=== PATIENT | female | born 1945 | race Asian ===

== ENCOUNTER 2017-10-13 09:25 | Inpatient (IN) | payer OTHER ==
[2017-10-13 11:22] LABS: WHITE BLOOD COUNT 6.6 10^3/ul (4.8-10.8)
[2017-10-13 11:22] LABS: ADD MAN DIFF? NO; BASOPHILS % 0.3 % (0.0-2.0); EOSINOPHILS # 0.1 10^3/ul (0.0-0.5); EOSINOPHILS % 2.1 % (0.0-7.0); HEMATOCRIT 39.3 % (37.0-47.0); HEMOGLOBIN 12.1 g/dl (12.0-16.0); LYMPHOCYTES # 2.1 10^3/ul (0.8-2.9); LYMPHOCYTES % 31.4 % (15.0-51.0); MEAN CORPUSCULAR HEMOGLOBIN 26.1 pg (29.0-33.0); MEAN CORPUSCULAR HGB CONC 30.8 g/dl (32.0-37.0); MEAN CORPUSCULAR VOLUME 84.7 fl (82.0-101.0); MEAN PLATELET VOLUME 12.3 fl (7.4-10.4); MONOCYTE # 0.5 10^3/ul (0.3-0.9); NEUTROPHIL # 3.9 10^3/ul (1.6-7.5); PLATELET COUNT 150 10^3/UL (140-415); RED BLOOD COUNT 4.64 10^6/ul (4.20-5.40); RED CELL DISTRIBUTION WIDTH 13.4 % (11.5-14.5)
[2017-10-13 11:45] LABS: ANION GAP 16 (8-16); CARBON DIOXIDE 28 mmol/L (21-31); CHLORIDE 105 mmol/L (97-110); GLUCOSE 129 mg/dl (70-220)
[2017-10-13 11:46] LABS: INR 0.95; PROTIME 12.8 Sec (11.9-14.9)
[2017-10-13 11:54] LABS: BLOOD UREA NITROGEN 17 mg/dl (7-20); CALCIUM 8.9 mg/dl (8.4-10.2); CREATININE 0.67 mg/dl (0.44-1.00); POTASSIUM 4.6 mmol/L (3.5-5.1); SODIUM 144 mmol/L (135-144)
[2017-10-13] MEDS ORDERED: HEPARIN 1000 UNITS/ML 10 ML INJ (12:19)
[2017-10-13] MEDS ORDERED: IODIXANOL LOCM 100 ML BTL (12:19)
[2017-10-13] MEDS ORDERED: MIDAZOLAM 1 MG/ML 2 ML INJ (12:19)
[2017-10-13] MEDS ORDERED: FENTAnyl 50 MCG/ML VIAL (12:20)
[2017-10-13] MEDS ORDERED: VERAPAMIL 5 MG INJ (12:20)
[2017-10-13] MEDS ORDERED: NITROGLYCERIN (IC) 100 MCG/ML INJ (12:20)
[2017-10-13] MEDS ORDERED: NACL 0.9% 3 ML SYG IV (13:30)
[2017-10-13] MEDS ORDERED: BISACODYL 10 MG SUPP PR (13:30)
[2017-10-13] MEDS ORDERED: morphine 2 MG INJ IV (13:30)
[2017-10-13] MEDS ORDERED: DOCUSATE SODIUM 100 MG CAP PO (13:30)
[2017-10-13] MEDS ORDERED: LORAZEPAM 2 MG INJ IV (13:30)
[2017-10-13] MEDS ORDERED: ONDANSETRON 4 MG INJ IV (13:30)
[2017-10-13] MEDS ORDERED: AL HYDROX/MG HYDROX/SIMETH 30 ML CUP PO (13:30)
[2017-10-13] MEDS ORDERED: NITROGLYCERIN (SL) 0.4 MG TAB SL (13:30)
[2017-10-13] MEDS ORDERED: MAGNESIUM HYDROXIDE 30ML CUP PO (13:30)
[2017-10-13] MEDS ORDERED: GLUCOSE GEL 15 GRAM TUBE BUCCAL (14:00)
[2017-10-13] MEDS ORDERED: GLUCOSE GEL 15 GRAM TUBE PO ×2 (14:00)
[2017-10-13] MEDS ORDERED: DEXTROSE 50% 50 ML SYRINGE IV ×2 (14:00)
[2017-10-13] MEDS ORDERED: GLUCAGON 1 MG INJ IM (14:00)
[2017-10-13] MEDS: ACETAMINOPHEN 325 MG TAB PO (16:17)
[2017-10-13] MEDS: ASPIRIN 81 MG TAB PO (16:18)
[2017-10-13] MEDS: INSULIN ASPART [NOVOLOG] 3 ML PEN SC ×2 (18:23→20:46)
[2017-10-13] MEDS ORDERED: CEFAZOLIN 2 GM/50 ML (PMX) 50 ML IVPB (20:00)
[2017-10-13] MEDS: ATORVASTATIN 80 MG TAB PO (20:42)
[2017-10-14] MEDS ORDERED: ALBUMIN HUMAN 25% 100 ML INJ (07:00)
[2017-10-14] MEDS ORDERED: ALBUMIN HUMAN 5% 250 ML INJ (07:00)
[2017-10-14] MEDS ORDERED: NITROGLYCERIN 50 MG/D5W 250 ML BTL (07:00)
[2017-10-14 07:27] LABS: ADD MAN DIFF? NO
[2017-10-14 07:30] LABS: WHITE BLOOD COUNT 7.6 10^3/ul (4.8-10.8)
[2017-10-14 07:30] LABS: BASOPHILS % 0.4 % (0.0-2.0); EOSINOPHILS # 0.1 10^3/ul (0.0-0.5); EOSINOPHILS % 1.7 % (0.0-7.0); HEMATOCRIT 39.6 % (37.0-47.0); HEMOGLOBIN 12.1 g/dl (12.0-16.0); LYMPHOCYTES # 1.9 10^3/ul (0.8-2.9); MEAN CORPUSCULAR HGB CONC 30.6 g/dl (32.0-37.0); MEAN PLATELET VOLUME 12.2 fl (7.4-10.4); MONOCYTE # 0.5 10^3/ul (0.3-0.9); MONOCYTES % 6.5 % (0.0-11.0); NEUTROPHIL # 5.1 10^3/ul (1.6-7.5); NEUTROPHILS % 66.3 % (39.0-77.0); PLATELET COUNT 146 10^3/UL (140-415); RED BLOOD COUNT 4.66 10^6/ul (4.20-5.40); RED CELL DISTRIBUTION WIDTH 13.2 % (11.5-14.5)
[2017-10-14 07:39] LABS: HEMOGLOBIN A1C 6.8 % (0-5.9)
[2017-10-14 07:57] LABS: ALANINE AMINOTRANSFERASE 37 IU/L (13-69); ALBUMIN 3.6 g/dl (3.3-4.9); ALBUMIN/GLOBULIN RATIO 1.24; ALKALINE PHOSPHATASE 95 IU/L (42-121); ANION GAP 11 (8-16); ASPARTATE AMINO TRANSFERASE 24 IU/L (15-46); BILIRUBIN,INDIRECT 1.3 mg/dl (0-1.1); BILIRUBIN,TOTAL 1.3 mg/dl (0.2-1.3); BLOOD UREA NITROGEN 14 mg/dl (7-20); CARBON DIOXIDE 32 mmol/L (21-31); CHLORIDE 107 mmol/L (97-110); CHOL/HDL RATIO 2.7 RATIO; CHOLESTEROL 75 mg/dl (100-200); CREATININE 0.63 mg/dl (0.44-1.00); GLUCOSE 129 mg/dl (70-220); HDL CHOLESTEROL 27 mg/dl (33-92); LDL CHOLESTEROL,CALCULATED 24 mg/dl; MAGNESIUM 1.8 mg/dl (1.7-2.5); POTASSIUM 4.4 mmol/L (3.5-5.1); SODIUM 146 mmol/L (135-144); TOTAL PROTEIN 6.5 g/dl (6.1-8.1); TRIGLYCERIDES 120 mg/dl (0-149)
[2017-10-14] MEDS: INSULIN ASPART [NOVOLOG] 3 ML PEN SC ×2 (08:00→12:00)
[2017-10-14 08:01] LABS: CALCIUM 8.9 mg/dl (8.4-10.2)
[2017-10-14] MEDS: BENAZEPRIL 5 MG TAB PO (08:14)
[2017-10-14] MEDS: PANTOPRAZOLE (EC) 40 MG TAB PO (08:14)
[2017-10-14] MEDS: ASPIRIN 81 MG TAB PO (08:16)
[2017-10-14] MEDS ORDERED: SODIUM CL BACTERIOSTATIC 30 ML INJ (09:19)
[2017-10-14] MEDS: CEFAZOLIN 2 GM/50 ML (PMX) 50 ML IVPB (11:54)
[2017-10-14] MEDS: HEPARIN (10000 UNITS/ML) 10,000 UNIT, MILRINONE LACTATE 10 MG in SOD CHLORIDE 0.9% 1,00... SC (13:00)
[2017-10-14] MEDS: EPINEPHrine 4 MG in DEXTROSE 5% 246 ML IV (13:00)
[2017-10-14] MEDS: MILRINONE LACTATE 2 MG in SOD CHLORIDE 0.9% 50 ML IV (13:00)
[2017-10-14] MEDS: ASPIRIN 600 MG SUPP PR (13:00)
[2017-10-14] MEDS: PHENYLephrine 20MG IN 250 ML 250 ML IV (13:00)
[2017-10-14] MEDS: NORepinephrine 8MG/250 ML (PMX 250 ML IV (13:00)
[2017-10-14] MEDS ORDERED: ROCURONIUM 50 MG INJ (13:05)
[2017-10-14] MEDS ORDERED: SUCCINYLCHOLINE CHLORIDE 100 MG/5 ML SYG IV (13:05)
[2017-10-14] MEDS ORDERED: LIDOCAINE 2% (SDV) 5 ML INJ (13:05)
[2017-10-14] MEDS ORDERED: ETOMIDATE 20 MG INJ (13:05)
[2017-10-14] MEDS ORDERED: MIDAZOLAM 5 ML ×2 (13:05)
[2017-10-14] MEDS ORDERED: PROPOFOL 100 ML (13:06)
[2017-10-14] MEDS ORDERED: AMINOCAPROIC ACID 5 GM INJ ×2 (13:06→15:58)
[2017-10-14] MEDS ORDERED: HEPARIN 1000 UNITS/ML 10 ML INJ ×2 (13:10→15:58)
[2017-10-14] MEDS ORDERED: VANCOMYCIN 1 GM INJ (14:24)
[2017-10-14] MEDS: VANCOMYCIN 1 GM INJ (15:01)
[2017-10-14] MEDS: HEPARIN 1000 UNITS/ML 10 ML INJ (15:05)
[2017-10-14] MEDS: PAPAVERINE 60 MG INJ (15:06)
[2017-10-14] MEDS ORDERED: PROTAMINE 250 MG INJ (15:07)
[2017-10-14] MEDS ORDERED: PHENYLephrine 10 MG INJ (15:57)
[2017-10-14] MEDS ORDERED: LIDOCAINE 100 MG SYRINGE (15:57)
[2017-10-14] MEDS ORDERED: MAGNESIUM SULFATE (MG) 50% 10 ML INJ (15:58)
[2017-10-14] MEDS ORDERED: MANNITOL 20% 250 ML IV (15:58)
[2017-10-14] MEDS ORDERED: ALBUMIN HUMAN 25% 200 ML (15:58)
[2017-10-14] MEDS ORDERED: CA CHLORIDE 10% 10 ML SYRINGE (15:58)
[2017-10-14] MEDS ORDERED: NA BICARBONATE 8.4% 50 ML SYG (15:58)
[2017-10-14] MEDS ORDERED: POTASSIUM CHLORIDE 40 MEQ INJ (15:58)
[2017-10-14] MEDS ORDERED: FUROSEMIDE 20 MG INJ (15:58)
[2017-10-14] MEDS ORDERED: DOPamine-D5W 1.6 MG/ML 250 ML IV (17:30)
[2017-10-14] MEDS ORDERED: HYDROmorphONE 0.5 MG/0.5 ML SYG IV (17:30)
[2017-10-14] MEDS ORDERED: OXYCODONE/ACETAMINOPHEN (5/325) TAB PO (17:30)
[2017-10-14] MEDS ORDERED: MAGNESIUM SULFATE 1 GM/D5W 100 ML IVPB (17:30)
[2017-10-14] MEDS ORDERED: ONDANSETRON 4 MG INJ IV (17:30)
[2017-10-14] MEDS ORDERED: DEXTROSE 50% 50 ML SYRINGE IV ×2 (17:30)
[2017-10-14 17:56] LABS: ADD MAN DIFF? NO
[2017-10-14 17:58] LABS: ABNORMAL IP MESSAGE 1; BASOPHILS % 0.1 % (0.0-2.0); EOSINOPHILS # 0.1 10^3/ul (0.0-0.5); EOSINOPHILS % 1.2 % (0.0-7.0); HEMATOCRIT 24.9 % (37.0-47.0); HEMOGLOBIN 7.9 g/dl (12.0-16.0); LYMPHOCYTES % 13.6 % (15.0-51.0); MEAN CORPUSCULAR HEMOGLOBIN 26.7 pg (29.0-33.0); MEAN CORPUSCULAR HGB CONC 31.7 g/dl (32.0-37.0); MEAN CORPUSCULAR VOLUME 84.1 fl (82.0-101.0); MEAN PLATELET VOLUME 11.3 fl (7.4-10.4); MONOCYTE # 0.1 10^3/ul (0.3-0.9); MONOCYTES % 1.6 % (0.0-11.0); NEUTROPHIL # 6.3 10^3/ul (1.6-7.5); NEUTROPHILS % 83.2 % (39.0-77.0); PLATELET COUNT 69 10^3/UL (140-415); RED BLOOD COUNT 2.96 10^6/ul (4.20-5.40); RED CELL DISTRIBUTION WIDTH 13.2 % (11.5-14.5)
[2017-10-14 17:58] LABS: WHITE BLOOD COUNT 7.6 10^3/ul (4.8-10.8)
[2017-10-14 17:59] LABS: POSITIVE DIFF @See below
[2017-10-14] MEDS: ACCU-CHEK XX ×6 (18:00→23:07)
[2017-10-14 18:18] LABS: INR 1.61; PROTIME 19.5 Sec (11.9-14.9); PT RATIO 1.5
[2017-10-14 18:19] LABS: PARTIAL THROMBOPLASTIN TIME 40.5 Sec (25.0-35.0)
[2017-10-14 18:20] LABS: AADO2 Arterial 274.4 mmHg (7.0-24.0); Arterial Base Excess -1.6 mmol/L (-3.0-3); Arterial Blood Gas Oxygen Sat 98.6 mmHG (95.0-100.0); Arterial COHb 0.3 % (0.0-3.0); Arterial Fraction of Oxyhgb 97.4 % (93.0-99.0); Arterial HCO3 21.4 mmol/L (22.0-26.0); Arterial MetHb 0.9 % (0.0-1.5); Arterial Total Hemglobin 8.1 g/dl (12.0-18.0); Arterial pCO2 29.2 mmhg (35-45); MODE VENT - AC; Site A-Line
[2017-10-14 18:26] LABS: MODE VENT - AC; MetHgb Mixed Venous 1.1 %; Mixed Venous COHb 0.1 %; Mixed Venous Fraction OxyHgb 68.7 %; Mixed Venous Oxygen Sat 69.5 mmHG (65.0-75.0); Mixed Venous Total Hemglobin 8.4 g/dl; Sample Type BLMV; Site VENOUS LINE
[2017-10-14] MEDS ORDERED: EPINEPHrine 4 MG in DEXTROSE 5% 246 ML IV (18:30)
[2017-10-14 18:35] LABS: ANION GAP 15 (8-16); BLOOD UREA NITROGEN 11 mg/dl (7-20); CALCIUM 11.3 mg/dl (8.4-10.2); CARBON DIOXIDE 26 mmol/L (21-31); CHLORIDE 108 mmol/L (97-110); CREATININE 0.71 mg/dl (0.44-1.00); GLUCOSE 119 mg/dl (70-220); MAGNESIUM 2.8 mg/dl (1.7-2.5); POTASSIUM 3.6 mmol/L (3.5-5.1); SODIUM 145 mmol/L (135-144)
[2017-10-14] MEDS: POTASSIUM CHLORIDE 40 MEQ, CALCIUM CHLORIDE 10% 1 GM in DEXTROSE 5%-0.225% NACL 1,000 ML IV (19:13)
[2017-10-14] MEDS: POTASSIUM CHLORIDE 50 ML IVPB ×4 (19:16→23:54)
[2017-10-14] MEDS ORDERED: MILRINONE LACTATE 100 ML (19:27)
[2017-10-14] MEDS: CEFAZOLIN 1 GM/50 ML (PMX) 50 ML IVPB (19:37)
[2017-10-14] MEDS: MILRINONE LACTATE 100 ML IV (19:41)
[2017-10-14] MEDS: INSULIN HUMAN REGULAR 100 UNIT in SOD CHLORIDE 0.9% 99 ML IVPB (19:43)
[2017-10-14] MEDS: FAMOTIDINE 20 MG INJ IV (19:49)
[2017-10-14] MEDS: INSULIN HUMAN REGULAR 100 UNIT in SOD CHLORIDE 0.9% 99 ML IV ×2 (19:55→23:11)
[2017-10-14] MEDS: NITROGLYCERIN 50 MG/D5W (PMX) 250 ML IV (20:32)
[2017-10-14] MEDS ORDERED: FAMOTIDINE 20 MG TAB PO (21:00)
[2017-10-14 23:34] LABS: POTASSIUM 4.1 mmol/L (3.5-5.1)
[2017-10-15] MEDS: ACCU-CHEK XX ×9 (00:07→08:00)
[2017-10-15] MEDS: INSULIN HUMAN REGULAR 100 UNIT in SOD CHLORIDE 0.9% 99 ML IV ×2 (00:54→02:15)
[2017-10-15] MEDS: POTASSIUM CHLORIDE 50 ML IVPB (01:07)
[2017-10-15 02:16] LABS: Arterial Base Excess -3.1 mmol/L (-3.0-3); Arterial Blood Gas Oxygen Sat 96.4 mmHG (95.0-100.0); Arterial COHb 0 % (0.0-3.0); Arterial Fraction of Oxyhgb 95.9 % (93.0-99.0); Arterial HCO3 20.9 mmol/L (22.0-26.0); Arterial MetHb 0.5 % (0.0-1.5); Arterial Total Hemglobin 8.7 g/dl (12.0-18.0); Arterial pCO2 33.2 mmhg (35-45); Blood Gas PS 10; MODE VENT - CPAP; Site A-Line
[2017-10-15] MEDS: CEFAZOLIN 1 GM/50 ML (PMX) 50 ML IVPB ×2 (06:06→12:01)
[2017-10-15] MEDS: HYDROmorphONE 0.5 MG/0.5 ML SYG IV (06:07)
[2017-10-15 06:08] LABS: INR 1.26; PARTIAL THROMBOPLASTIN TIME 37.1 Sec (25.0-35.0); PT RATIO 1.3
[2017-10-15 06:09] LABS: ADD MAN DIFF? NO
[2017-10-15 06:10] LABS: ALANINE AMINOTRANSFERASE 24 IU/L (13-69); ALBUMIN 4.2 g/dl (3.3-4.9); ALKALINE PHOSPHATASE 45 IU/L (42-121); ANION GAP 14 (8-16); ASPARTATE AMINO TRANSFERASE 31 IU/L (15-46); BILIRUBIN,INDIRECT 2.3 mg/dl (0-1.1); BILIRUBIN,TOTAL 2.3 mg/dl (0.2-1.3); BLOOD UREA NITROGEN 13 mg/dl (7-20); CALCIUM 10.2 mg/dl (8.4-10.2); CARBON DIOXIDE 26 mmol/L (21-31); CHLORIDE 111 mmol/L (97-110); CREATININE 0.89 mg/dl (0.44-1.00); GLUCOSE 128 mg/dl (70-220); MAGNESIUM 2.2 mg/dl (1.7-2.5); POTASSIUM 4.7 mmol/L (3.5-5.1); SODIUM 146 mmol/L (135-144); TOTAL PROTEIN 6.4 g/dl (6.1-8.1)
[2017-10-15 06:10] LABS: PHOSPHORUS 2.7 mg/dl (2.5-4.9)
[2017-10-15 06:57] LABS: ABNORMAL IP MESSAGE 1; BASOPHILS % 0.3 % (0.0-2.0); EOSINOPHILS # 0.1 10^3/ul (0.0-0.5); EOSINOPHILS % 0.7 % (0.0-7.0); HEMATOCRIT 27.2 % (37.0-47.0); HEMOGLOBIN 8.5 g/dl (12.0-16.0); LYMPHOCYTES # 1.2 10^3/ul (0.8-2.9); LYMPHOCYTES % 13.3 % (15.0-51.0); MEAN CORPUSCULAR HEMOGLOBIN 26.8 pg (29.0-33.0); MEAN CORPUSCULAR HGB CONC 31.3 g/dl (32.0-37.0); MEAN CORPUSCULAR VOLUME 85.8 fl (82.0-101.0); MEAN PLATELET VOLUME 13.1 fl (7.4-10.4); MONOCYTE # 0.6 10^3/ul (0.3-0.9); MONOCYTES % 7.2 % (0.0-11.0); NEUTROPHIL # 6.8 10^3/ul (1.6-7.5); NEUTROPHILS % 78.2 % (39.0-77.0); NUCLEATED RED BLOOD CELLS% 0.2 /100WBC (0.0-0.0); PLATELET COUNT 91 10^3/UL (140-415); RED BLOOD COUNT 3.17 10^6/ul (4.20-5.40); RED CELL DISTRIBUTION WIDTH 13.7 % (11.5-14.5)
[2017-10-15 06:57] LABS: WHITE BLOOD COUNT 8.7 10^3/ul (4.8-10.8)
[2017-10-15 07:08] LABS: POSITIVE DIFF @See below
[2017-10-15] MEDS: METOPROLOL 25 MG TAB PO ×2 (08:21→20:16)
[2017-10-15] MEDS: FAMOTIDINE 20 MG INJ IV ×2 (08:22→20:15)
[2017-10-15] MEDS: ASPIRIN (EC) 81 MG TAB PO (08:22)
[2017-10-15] MEDS: OXYCODONE/ACETAMINOPHEN (5/325) TAB PO ×2 (08:22→23:37)
[2017-10-15] MEDS: ENOXAPARIN 40 MG/0.4 ML SYG SC (09:11)
[2017-10-15] MEDS ORDERED: GLUCAGON 1 MG INJ IM (09:30)
[2017-10-15] MEDS ORDERED: GLUCOSE GEL 15 GRAM TUBE PO ×2 (09:30)
[2017-10-15] MEDS ORDERED: DEXTROSE 50% 50 ML SYRINGE IV ×2 (09:30)
[2017-10-15] MEDS ORDERED: GLUCOSE GEL 15 GRAM TUBE BUCCAL (09:30)
[2017-10-15] MEDS: INSULIN ASPART [NOVOLOG] 3 ML PEN SC ×3 (12:02→20:22)
[2017-10-15 17:04] LABS: HEMATOCRIT 30.5 % (37.0-47.0)
[2017-10-15] MEDS: ATORVASTATIN 40 MG TAB PO (20:15)
[2017-10-16] MEDS: ACCU-CHEK XX (01:50)
[2017-10-16 05:20] LABS: ADD MAN DIFF? NO
[2017-10-16 05:27] LABS: WHITE BLOOD COUNT 9.5 10^3/ul (4.8-10.8)
[2017-10-16 05:28] LABS: ABNORMAL IP MESSAGE 1; BASOPHILS % 0.2 % (0.0-2.0); EOSINOPHILS # 0.1 10^3/ul (0.0-0.5); EOSINOPHILS % 1.2 % (0.0-7.0); HEMATOCRIT 29.4 % (37.0-47.0); LYMPHOCYTES # 1.9 10^3/ul (0.8-2.9); MEAN CORPUSCULAR HEMOGLOBIN 26.3 pg (29.0-33.0); MEAN CORPUSCULAR HGB CONC 30.6 g/dl (32.0-37.0); MEAN PLATELET VOLUME 12.9 fl (7.4-10.4); MONOCYTE # 0.7 10^3/ul (0.3-0.9); MONOCYTES % 7.2 % (0.0-11.0); NEUTROPHIL # 6.7 10^3/ul (1.6-7.5); NEUTROPHILS % 71.1 % (39.0-77.0); RED BLOOD COUNT 3.42 10^6/ul (4.20-5.40); RED CELL DISTRIBUTION WIDTH 13.7 % (11.5-14.5)
[2017-10-16 06:08] LABS: POSITIVE DIFF @See below
[2017-10-16 06:09] LABS: PLATELET COUNT 83 10^3/UL (140-415)
[2017-10-16 06:15] LABS: ANION GAP 13 (8-16); BLOOD UREA NITROGEN 14 mg/dl (7-20); CALCIUM 9.1 mg/dl (8.4-10.2); CARBON DIOXIDE 26 mmol/L (21-31); CHLORIDE 107 mmol/L (97-110); CREATININE 0.67 mg/dl (0.44-1.00); GLUCOSE 146 mg/dl (70-220); MAGNESIUM 1.8 mg/dl (1.7-2.5); PHOSPHORUS 3.9 mg/dl (2.5-4.9); POTASSIUM 4.4 mmol/L (3.5-5.1); SODIUM 142 mmol/L (135-144)
[2017-10-16] MEDS: FAMOTIDINE 20 MG INJ IV (08:12)
[2017-10-16] MEDS: INSULIN ASPART [NOVOLOG] 3 ML PEN SC ×4 (08:15→21:00)
[2017-10-16] MEDS: ACETAMINOPHEN 325 MG TAB PO (08:49)
[2017-10-16] MEDS: ASPIRIN (EC) 81 MG TAB PO (08:49)
[2017-10-16] MEDS: METOPROLOL 25 MG TAB PO ×2 (08:49→21:11)
[2017-10-16] MEDS: ENOXAPARIN 40 MG/0.4 ML SYG SC (08:57)
[2017-10-16] MEDS: MAGNESIUM SULFATE 4 GM/100 ML 100 ML IVPB (12:21)
[2017-10-16] MEDS: ATORVASTATIN 40 MG TAB PO (21:11)
[2017-10-16] MEDS: GUAIFENESIN 20 MG/ML 5ML CUP PO (21:11)
[2017-10-16] MEDS: CEPASTAT LOZENGE MT (22:32)
[2017-10-17] MEDS: ACCU-CHEK XX (02:00)
[2017-10-17 06:31] LABS: ADD MAN DIFF? NO
[2017-10-17 06:36] LABS: WHITE BLOOD COUNT 9.9 10^3/ul (4.8-10.8)
[2017-10-17 06:37] LABS: ABNORMAL IP MESSAGE 1; BASOPHILS % 0.2 % (0.0-2.0); EOSINOPHILS # 0.1 10^3/ul (0.0-0.5); EOSINOPHILS % 1.1 % (0.0-7.0); HEMATOCRIT 31.1 % (37.0-47.0); HEMOGLOBIN 9.6 g/dl (12.0-16.0); LYMPHOCYTES # 1.7 10^3/ul (0.8-2.9); LYMPHOCYTES % 17.4 % (15.0-51.0); MEAN CORPUSCULAR HEMOGLOBIN 26.4 pg (29.0-33.0); MEAN CORPUSCULAR HGB CONC 30.9 g/dl (32.0-37.0); MEAN CORPUSCULAR VOLUME 85.7 fl (82.0-101.0); MEAN PLATELET VOLUME 12.2 fl (7.4-10.4); MONOCYTE # 0.8 10^3/ul (0.3-0.9); MONOCYTES % 7.6 % (0.0-11.0); NEUTROPHIL # 7.3 10^3/ul (1.6-7.5); NEUTROPHILS % 73.3 % (39.0-77.0); PLATELET COUNT 80 10^3/UL (140-415); RED BLOOD COUNT 3.63 10^6/ul (4.20-5.40); RED CELL DISTRIBUTION WIDTH 13.4 % (11.5-14.5)
[2017-10-17 06:51] LABS: PHOSPHORUS 2.4 mg/dl (2.5-4.9)
[2017-10-17 07:02] LABS: ANION GAP 12 (8-16); BLOOD UREA NITROGEN 13 mg/dl (7-20); CALCIUM 8.9 mg/dl (8.4-10.2); CARBON DIOXIDE 28 mmol/L (21-31); CHLORIDE 105 mmol/L (97-110); CREATININE 0.61 mg/dl (0.44-1.00); GLUCOSE 136 mg/dl (70-220); POTASSIUM 4.4 mmol/L (3.5-5.1); SODIUM 141 mmol/L (135-144)
[2017-10-17 07:03] LABS: POSITIVE DIFF @See below
[2017-10-17] MEDS: INSULIN ASPART [NOVOLOG] 3 ML PEN SC ×4 (08:06→20:08)
[2017-10-17] MEDS: ASPIRIN (EC) 81 MG TAB PO (08:44)
[2017-10-17] MEDS: METOPROLOL 25 MG TAB PO ×2 (08:44→20:09)
[2017-10-17] MEDS: OXYCODONE/ACETAMINOPHEN (5/325) TAB PO (08:51)
[2017-10-17] MEDS: ENOXAPARIN 40 MG/0.4 ML SYG SC (10:28)
[2017-10-17] MEDS: GUAIFENESIN 20 MG/ML 5ML CUP PO (10:33)
[2017-10-17] MEDS: AMIODARONE 200 MG TAB PO ×2 (17:37→22:01)
[2017-10-17] MEDS: ATORVASTATIN 40 MG TAB PO (20:09)
[2017-10-18] MEDS: ALBUTEROL/IPRATROPIUM (NEB) 3 ML AMP HHN (00:47)
[2017-10-18] MEDS: ACCU-CHEK XX (02:00)
[2017-10-18 07:06] LABS: ADD MAN DIFF? NO
[2017-10-18 07:14] LABS: WHITE BLOOD COUNT 7.2 10^3/ul (4.8-10.8)
[2017-10-18 07:14] LABS: BASOPHILS % 0.1 % (0.0-2.0); EOSINOPHILS # 0.2 10^3/ul (0.0-0.5); EOSINOPHILS % 3.1 % (0.0-7.0); HEMATOCRIT 29.1 % (37.0-47.0); LYMPHOCYTES # 1.7 10^3/ul (0.8-2.9); LYMPHOCYTES % 23.1 % (15.0-51.0); MEAN CORPUSCULAR HEMOGLOBIN 26.5 pg (29.0-33.0); MEAN CORPUSCULAR HGB CONC 30.9 g/dl (32.0-37.0); MEAN CORPUSCULAR VOLUME 85.8 fl (82.0-101.0); MEAN PLATELET VOLUME 12.6 fl (7.4-10.4); MONOCYTE # 0.7 10^3/ul (0.3-0.9); MONOCYTES % 10.2 % (0.0-11.0); NEUTROPHIL # 4.5 10^3/ul (1.6-7.5); NEUTROPHILS % 62.9 % (39.0-77.0); PLATELET COUNT 105 10^3/UL (140-415); RED BLOOD COUNT 3.39 10^6/ul (4.20-5.40); RED CELL DISTRIBUTION WIDTH 13.5 % (11.5-14.5)
[2017-10-18 07:30] LABS: MAGNESIUM 1.9 mg/dl (1.7-2.5)
[2017-10-18 07:37] LABS: ANION GAP 15 (8-16); BLOOD UREA NITROGEN 12 mg/dl (7-20); CALCIUM 8.3 mg/dl (8.4-10.2); CARBON DIOXIDE 26 mmol/L (21-31); CHLORIDE 105 mmol/L (97-110); CREATININE 0.58 mg/dl (0.44-1.00); GLUCOSE 156 mg/dl (70-220); SODIUM 142 mmol/L (135-144)
[2017-10-18] MEDS: CEPASTAT LOZENGE MT ×2 (07:43→20:49)
[2017-10-18] MEDS: INSULIN ASPART [NOVOLOG] 3 ML PEN SC ×4 (07:52→20:46)
[2017-10-18] MEDS: ASPIRIN (EC) 81 MG TAB PO (08:37)
[2017-10-18] MEDS: METOPROLOL 25 MG TAB PO ×2 (08:38→20:49)
[2017-10-18] MEDS: AMIODARONE 200 MG TAB PO ×3 (08:38→20:48)
[2017-10-18] MEDS: ENOXAPARIN 40 MG/0.4 ML SYG SC (08:41)
[2017-10-18] MEDS: OXYCODONE/ACETAMINOPHEN (5/325) TAB PO (08:51)
[2017-10-18] MEDS: GUAIFENESIN LA 600 MG TABSR PO ×2 (11:49→20:49)
[2017-10-18] MEDS: MAGNESIUM SULFATE 2 GM/50 ML 50 ML IVPB (11:49)
[2017-10-18] MEDS: FUROSEMIDE 20 MG INJ IV (13:50)
[2017-10-18] MEDS: ATORVASTATIN 40 MG TAB PO (20:49)
[2017-10-19] MEDS: ALBUTEROL/IPRATROPIUM (NEB) 3 ML AMP HHN (01:08)
[2017-10-19] MEDS: ACCU-CHEK XX (02:00)
[2017-10-19] MEDS: INSULIN ASPART [NOVOLOG] 3 ML PEN SC ×2 (07:55→12:10)
[2017-10-19 07:59] LABS: ADD MAN DIFF? NO
[2017-10-19 08:04] LABS: BASOPHILS % 0.3 % (0.0-2.0); EOSINOPHILS # 0.2 10^3/ul (0.0-0.5); HEMATOCRIT 28.2 % (37.0-47.0); HEMOGLOBIN 8.7 g/dl (12.0-16.0); LYMPHOCYTES # 1.7 10^3/ul (0.8-2.9); LYMPHOCYTES % 24.1 % (15.0-51.0); MEAN CORPUSCULAR HEMOGLOBIN 26.1 pg (29.0-33.0); MEAN CORPUSCULAR HGB CONC 30.9 g/dl (32.0-37.0); MEAN CORPUSCULAR VOLUME 84.7 fl (82.0-101.0); MEAN PLATELET VOLUME 12.3 fl (7.4-10.4); MONOCYTE # 0.7 10^3/ul (0.3-0.9); MONOCYTES % 9.2 % (0.0-11.0); NEUTROPHIL # 4.4 10^3/ul (1.6-7.5); NEUTROPHILS % 62.8 % (39.0-77.0); PLATELET COUNT 132 10^3/UL (140-415); RED BLOOD COUNT 3.33 10^6/ul (4.20-5.40); RED CELL DISTRIBUTION WIDTH 13.6 % (11.5-14.5)
[2017-10-19] MEDS: AMIODARONE 200 MG TAB PO ×2 (08:30→13:29)
[2017-10-19] MEDS: FUROSEMIDE 20 MG TAB PO (08:30)
[2017-10-19] MEDS: ASPIRIN (EC) 81 MG TAB PO (08:30)
[2017-10-19] MEDS: GUAIFENESIN LA 600 MG TABSR PO (08:30)
[2017-10-19] MEDS: ENOXAPARIN 40 MG/0.4 ML SYG SC (08:32)
[2017-10-19 08:36] LABS: ANION GAP 12 (8-16); BLOOD UREA NITROGEN 11 mg/dl (7-20); CALCIUM 8.4 mg/dl (8.4-10.2); CARBON DIOXIDE 29 mmol/L (21-31); CHLORIDE 103 mmol/L (97-110); CREATININE 0.59 mg/dl (0.44-1.00); GLUCOSE 141 mg/dl (70-220); POTASSIUM 4.2 mmol/L (3.5-5.1); SODIUM 140 mmol/L (135-144)
[2017-10-19] MEDS: LISINOPRIL 5 MG TAB PO (08:39)
[2017-10-19] MEDS: METOPROLOL 25 MG TAB PO (08:39)
[2017-10-19] MEDS: FUROSEMIDE 20 MG INJ IV (15:04)
[2017-10-20] MEDS ORDERED: AMIODARONE 200 MG TAB PO (09:00)
== END 2017-10-19 17:11 | disposition home health service (06) | DRG 234 ==
LOC: SDS 09:25 → TEL 10-16 16:01 → SDS 09:25 → ICU 10-14 13:14 → SDS 13:20 → ICU 10-14 17:39 → REC 13:20 → MS4 15:47
PROC: B211YZZ Fluoroscopy of Multiple Coronary Arteries using Other Contrast (ICD-10-PCS; 2017-10-13 12:00)
PROC: 4A023N7 Measurement of Cardiac Sampling and Pressure, Left Heart, Percutaneous Approach (ICD-10-PCS; 2017-10-13 12:00)
PROC: 02100Z9 Bypass Coronary Artery, One Artery from Left Internal Mammary, Open Approach (ICD-10-PCS; principal; 2017-10-13 12:10)
PROC: 021109W Bypass Coronary Artery, Two Arteries from Aorta with Autologous Venous Tissue, Open Approach (ICD-10-PCS; 2017-10-13 12:10)
PROC: 06BP4ZZ Excision of Right Saphenous Vein, Percutaneous Endoscopic Approach (ICD-10-PCS; 2017-10-13 12:10)
DX: I25.10 Atherosclerotic heart disease of native coronary artery without angina pectoris (principal); I50.22 Chronic systolic (congestive) heart failure; I11.0 Hypertensive heart disease with heart failure; I25.5 Ischemic cardiomyopathy; E11.9 Type 2 diabetes mellitus without complications; D50.9 Iron deficiency anemia, unspecified; Z87.19 Personal history of other diseases of the digestive system; E78.5 Hyperlipidemia, unspecified; I48.0 Paroxysmal atrial fibrillation
CPT/HCPCS: 36592; 36600; 71045; 80048; 80053; 80061; 82803; 82962; 83036; 83735; 84100; 84132; 85014; 85025; 85610; 85730; 86850; 86900; 86901; 86920; 87081; 93005; 93306; 93312; 93320; 93325; 93458; 93880; 94002; 94003; 94640; 94664; 94770; 97116; 97162; 97530